=== PATIENT | male | born 1930 | race Caucasian/White ===

== ENCOUNTER 2017-04-03 06:46 | Emergency (ER) | payer MEDICARE, BC ==
[2017-04-03] MEDS ORDERED: Sodium Chloride 0.9% 10 ML Syringe FLUSH PRN (07:12)
[2017-04-03] MEDS ORDERED: Sodium Chloride 0.9% 1,000 ML IV SCH (07:15)
--- NOTE | 2017-04-03 07:20 | CT ---
Head CT Technique: Multiple axial sections through the brain were obtained. Intravenous contrast was not utilized. Comparison: Prior head CT exam of 03/01/15. Findings: Ventricles along with basal cisterns and sulci over convexities are mildly prominent. Small area of diminished density is noted within portions of the left temporal lobe having the appearance of old infarct. Mild diminished density is noted within portions of the periventricular and subcortical white matter as well as basal ganglia most likely representing small vessel ischemic demyelination change. No other abnormal parenchymal densities are seen. No evidence of intracranial hemorrhage. No midline shift or mass effect is seen. Atherosclerotic calcification is noted within the carotid siphon. No acute calvarial abnormality is appreciated. Visualized sinuses are clear. Impression: 1. Senescent change as noted above. Nothing acute is appreciated on noncontrast head CT study. Diagnostic code #2
--- NOTE | 2017-04-03 07:38 | EDM.PDOC ---
ED HPI GENERAL MEDICAL PROBLEM - General Chief Complaint: Neuro Symptoms/Deficits Stated Complaint: RT HAND NUMBNESS Time Seen by Provider: 04/03/17 07:02 Source of Information: Reports: Patient, RN Notes Reviewed - History of Present Illness INITIAL COMMENTS - FREE TEXT/NARRATIVE: 86-year-old male presents with right hand weakness. This was called as a stroke alert. He arrived at about 6:50 so was initially seen imediately by Dr Trejo. He was medically stable and sent immediately to CT. I than did a more thorough assessment of patient and assumed care after he returned from CT with 7:00 change of shift. He states that he awakened around 2 AM, 5 hours ago and was aware that he had weakness of his right hand. He could move his fingers but was not able to strongly grasp or activity specialist things as he normally could do. He had no speech difficulty, no weakness of his foot or leg or no other unusual symptoms at that time. Because the symptoms were rather mild they elected not to come to the ED immediately. Because of right hand weakness is persisting they do present now to the ED at this time. He does have history of previous TIA about 5 years ago primarily consisting of facial droop and speech difficulty. He did have a CABG about 2 years ago and is on xarelto for chronic atrial fib in addition to his other medications. He has no chest pain, shortness of breath, headache. He is had no visual difficulty and there has been no nausea or vomiting. His did give him 2 325 mg aspirin about 2 hours prior to arrival. Right Upper Abdomen Pain Score (Numeric/FACES): 8 - Related Data Allergies Allergy/AdvReac Type Severity Reaction Status Date / Time No Known Allergies Allergy Verified 03/05/16 14:02 Home Meds: Home Meds Insulin Glarg,Human.Rec.Analog [Lantus] 50 units SQ BEDTIME 06/21/14 [History] Insulin Lispro [Humalog] 20 - 35 units SQ TIDAC 06/21/14 [History] Metoprolol Tartrate [Lopressor] 50 mg PO BID 10/17/14 [History] atorvaSTATin [Lipitor] 20 mg PO DAILY 03/05/16 [History] Donepezil [Aricept] 10 mg PO DAILY 04/03/17 [History] LORazepam 0.5 mg PO ASDIRECTED PRN 04/03/17 [History] Rivaroxaban [Xarelto] 15 mg PO DAILY 04/03/17 [History] traMADol HCl [Tramadol HCl] 50 mg PO BID 04/03/17 [History] Past Medical History HEENT History: Reports: Cataract Cardiovascular History: Reports: Bypass, CAD, High Cholesterol, Hypertension, [place] Other Cardiovascular History: patient had triple bypass in september 2014 at [facility] Psychiatric History: Reports: Developmental Delay Endocrine/Metabolic History: Reports: Diabetes, Type II Other Endocrine/Metabolic History: patient has been diabetic for 20 years. - Past Surgical History HEENT Surgical History: Reports: Cataract Surgery Other Cardiovascular Surgeries/Procedures: 3 vessel bypass surgery Neurological Surgical History: Reports: Lumbar Spine Social & Family History - Family History Family Medical History: Noncontributory - Tobacco Use Smoking Status *Q: Never Smoker Second Hand Smoke Exposure: No - Caffeine Use Caffeine Use: Reports: Coffee - Alcohol Use Days Per Week of Alcohol Use: 3 Number of Drinks Per Day: 1 Total Drinks Per Week: 3 - Recreational Drug Use Recreational Drug Use: No ED ROS GENERAL - Review of Systems Review Of Systems: See Below Constitutional: Denies: Fever, Chills, Diaphoresis HEENT: Denies: Throat Pain, Vertigo, Vision Change Respiratory: Denies: Shortness of Breath, Pleuritic Chest Pain Cardiovascular: Denies: Chest Pain GI/Abdominal: Denies: Abdominal Pain, Nausea Musculoskeletal: Denies: Leg Pain Skin: Reports: No Symptoms Neurological: Reports: Weakness. Denies: Dizziness, Headache, Numbness, Tingling, Trouble Speaking, Difficulty Walking (Hand) ED EXAM, NEURO - Physical Exam Exam: See Below General Appearance: Alert, No Apparent Distress Eye Exam: Bilateral Eye: PERRL Throat/Mouth: Normal Inspection, Normal Oropharynx Head Exam: Atraumatic. No: Facial Swelling Neck: Supple Respiratory/Chest: No Respiratory Distress, Lungs Clear, Normal Breath Sounds Cardiovascular: Regular Rate, Rhythm GI/Abdominal: Soft, Non-Tender Neurological: Alert, Oriented x 3, Other (Patient has about 50% weakness with grasping of the right hand time of initial exam, good forearm flexion and extension, no other focal weakness identified) Extremities: Normal Inspection, Normal Range of Motion. No: Leg Pain, Increased Warmth, Redness Skin Exam: Warm, Dry Course - Vital Signs Last Recorded V/S: Last Vital Signs Temp 96.9 F 04/03/17 06:49 Pulse 118 H 04/03/17 09:50 Resp 10 L 04/03/17 06:49 BP 139/88 04/03/17 09:50 Pulse Ox 90 L 04/03/17 06:49 - Orders/Labs/Meds Orders: Active Orders 24 hr Category Date Time Status EKG Documentation Completion [RC] STAT Care 04/03/17 07:00 Active Peripheral IV Care [RC] . DIRECTED Care 04/03/17 07:13 Active Peripheral IV Insertion Adult [OM.PC] Stat Oth 04/03/17 07:12 Ordered Labs: Laboratory Tests 04/03/17 04/03/17 04/03/17 Range/Units 07:15 07:15 07:15 WBC 7.84 (4.23-9.07) K/mm3 RBC 5.51 (4.63-6.08) M/mm3 Hgb 16.0 (13.7-17.5) gm/L Hct 48.3 (40.1-51.0) % MCV 87.7 (79.0-92.2) fl MCH 29.0 (25.7-32.2) pg MCHC 33.1 (32.2-35.5) g/dl RDW Std Deviation 42.4 (35.1-43.9) fL Plt Count 146 L (163-337) K/mm3 MPV 10.8 (9.4-12.3) fl Neut % (Auto) 66.8 (34.0-67.9) % Lymph % (Auto) 20.3 L (21.8-53.1) % Mcdonough % (Auto) 11.0 (5.3-12.2) % Eos % (Auto) 1.3 (0.8-7.0) Baso % (Auto) 0.5 (0.1-1.2) % Neut # (Auto) 5.24 (1.78-5.38) K/mm3 Lymph # (Auto) 1.59 (1.32-3.57) K/mm3 Mcdonough # (Auto) 0.86 H (0.30-0.82) K/mm3 Eos # (Auto) 0.10 (0.04-0.54) K/mm3 Baso # (Auto) 0.04 (0.01-0.08) K/mm3 PT 12.1 (8.0-13.0) SECONDS INR 1.10 APTT 32 (22-36) SECONDS Sodium 138 (136-145) mEq/L Potassium 4.0 (3.5-5.1) mEq/L Chloride 102 (98-107) mEq/L Carbon Dioxide 26 (21-32) mEq/L Anion Gap 14.0 (5-15) BUN 15 (7-18) mg/dL Creatinine 1.1 (0.7-1.3) mg/dL Est Cr Clr Drug Dosing TNP Estimated GFR (MDRD) > 60 (>60) mL/min BUN/Creatinine Ratio 13.6 L (14-18) Glucose 158 H (83-115) mg/dL Calcium 9.2 (8.5-10.1) mg/dL Total Bilirubin 0.8 (0.2-1.0) mg/dL AST 45 H (15-37) U/L ALT 45 (16-63) U/L Alkaline Phosphatase 109 (46-116) U/L Total Protein 7.0 (6.4-8.2) g/dl Albumin 3.7 (3.4-5.0) g/dl Globulin 3.3 gm/dL Albumin/Globulin Ratio 1.1 (1-2) Meds: Medications Discontinued Medications Generic Name Dose Route Start Last Admin Trade Name Freq PRN Reason Stop Dose Admin Gadobenate Dimeglumine 20 ml 04/03/17 12:24 Multihance IVPUSH 04/03/17 12:25 ONETIME ONE Sodium Chloride 1,000 mls @ 150 mls/hr 04/03/17 07:15 04/03/17 07:44 Normal Saline IV 150 mls/hr ASDIRECTED CHRISTY Administration Metoprolol Tartrate 5 mg/ 55 mls @ 100 mls/hr 04/03/17 09:40 04/03/17 10:38 Sodium Chloride IV 04/03/17 10:12 Not Given ONETIME ONE Metoprolol Tartrate 50 mg 04/03/17 09:41 04/03/17 09:49 Lopressor PO 04/03/17 09:42 50 mg ONETIME ONE Administration Metoprolol Tartrate 5 mg 04/03/17 09:45 04/03/17 09:50 Lopressor IVPUSH 04/03/17 09:46 5 mg ONETIME ONE Administration Sodium Chloride 10 ml 04/03/17 07:12 04/03/17 07:45 Saline Flush FLUSH 10 ml ASDIRECTED PRN Administration Keep Vein Open Sodium Chloride 20 ml 04/03/17 12:24 Normal Saline IARTIC 04/03/17 12:25 ONETIME ONE - Re-Assessments/Exams Free Text/Narrative Re-Assessment/Exam: 04/03/17 10:30. This was called as a stroke alert. Dr Long saw him immediately and then I did see him as soon as he returned from CT. Last known time of wellness was around 9:00 last evening about 11 hours ago. He believes he was fine up until about 1:30 AM but that is not totally clear. There was hope and plan of getting him in around 8:30 for MRA of his carotids. However the patient scheduled for 8:00 came late and therefore that did not work out. Therefore the plan now is to get the MRA at around 11:30. He Is doing better. His grasp with the right hand is definitely a fair amount stronger from arrival when he had about 50% strength with right hand grasp, difficulty holding any object at time of initial evaluation. Head CT did not show any acute changes. 04/03/17 12:55. MRA has been done of the carotids. Still awaiting radiology report. She was getting very inpatient with the lengthening length of stay. Of interest his hand grasp is come back to 100% strength with no noticeable difference 1 hand to the other. I'm going to let him go home at this time. We are going to try get an appointment for him to see his medical provider Dr. Virgen Burns early next week. We'll have him start taking one baby aspirin daily for now. Discharge instructions as documented Departure - Departure Time of Disposition: 13:41 Disposition: Home, Self-Care 01 Condition: Fair Clinical Impression: CVA (cerebral vascular accident) Qualifiers: CVA mechanism: unspecified Qualified Code(s): I63.9 - Cerebral infarction, unspecified - Discharge Information Instructions: Stroke Prevention, Ischemic Stroke Treated Without Warfarin Referrals: PCP,Unknown [Ordering Only Provider] - Forms: ED Department Discharge Additional Instructions: Rest, continue xarelto and other medications as prescribed, take one baby aspirin daily for now. See Dr. Dubose early next week. Drink plenty of water to maintain hydration. Return to ED if symptoms reoccurring or worsening in any way. You have an appt scheduled with Dr Dubose on ThursdayApr 07 at 2:45 pm. - My Orders Last 24 Hours: My Active Orders 04/03/17 07:00 EKG Documentation Completion [RC] STAT 04/03/17 07:12 Peripheral IV Insertion Adult [OM.PC] Stat 04/03/17 07:13 Peripheral IV Care [RC] . DIRECTED - Assessment/Plan Last 24 Hours: My Active Orders 04/03/17 07:00 EKG Documentation Completion [RC] STAT 04/03/17 07:12 Peripheral IV Insertion Adult [OM.PC] Stat 04/03/17 07:13 Peripheral IV Care [RC] . DIRECTED
[2017-04-03] MEDS ORDERED: Metoprolol Tartrate 5 MG in Sodium Chloride 0.9% 50 ML IV ONE (09:40)
[2017-04-03] MEDS ORDERED: Metoprolol Tartrate 50 MG Tab PO ONE (09:41)
--- NOTE | 2017-04-03 09:42 | CR ---
Chest: Portable view of the chest is obtained. Comparison: Prior chest x-ray of 03/01/15. Prior chest CT of 09/12/15 is also available. Blunting of the lateral left costophrenic angle is seen compatible with small pleural effusion. Mild left basilar atelectasis is felt to be present. Heart is mildly enlarged with previous sternotomy. Lungs otherwise are clear. Scoliosis is noted within the spine. Bony structures are osteopenic. Impression: 1. Small left-sided pleural effusion with left basilar atelectasis. These findings are stable from prior exams. 2. Cardiomegaly which is also stable. 3. Other incidental findings. Diagnostic code #2
[2017-04-03] MEDS ORDERED: Metoprolol Tartrate 5 MG/5 ML SDV IVPUSH ONE (09:45)
[2017-04-03 09:51] VITALS: BP 139/88
[2017-04-03] MEDS ORDERED: Gadobenate Dimeglumine 529 MG/ML 20 ML SDV IVPUSH ONE (12:24)
[2017-04-03] MEDS ORDERED: Sodium Chloride 0.9% 10 ML SDV IARTIC ONE (12:24)
--- NOTE | 2017-04-03 14:04 | MR ---
MR angiogram of neck Technique: [id number] and post gadolinium MR angiogram study was obtained of the neck. Multiple MIP images were obtained in multiple projections. Findings: Common carotid arteries: Patent on both sides without significant stenosis Internal carotid arteries: Carotid bulbs on both sides appears without significant stenosis. Right internal carotid artery shows severe stenosis distally. Other portions of the internal carotid artery on the right side appear unremarkable. Left internal carotid artery shows moderate stenosis distally. Vertebral arteries: Both vertebral arteries are patent into the basilar artery. Impression: 1. Severe stenosis within the distal right internal carotid artery and moderate stenosis within the left distal internal carotid artery. 2. No additional abnormality identified on MR angiogram of the neck. Diagnostic code #3
== END 2017-04-03 14:00 | disposition home or self-care (01) ==
LOC: JD.ED 06:46
DX: I63.9 Cerebral infarction, unspecified (principal); I10 Essential (primary) hypertension; I25.10 Atherosclerotic heart disease of native coronary artery without angina pectoris; E78.00 Pure hypercholesterolemia, unspecified; E11.9 Type 2 diabetes mellitus without complications; Z79.4 Long term (current) use of insulin; Z79.899 Other long term (current) drug therapy
CPT/HCPCS: 36415; 70450; 70548; 71010; 80053; 85025; 85610; 85730; 93005; 96361; 96374; 99285; A9270; J7040; J7050; 99284; J3490